=== PATIENT | male | born 1985 ===

== ENCOUNTER 2017-05-11 09:03 | Emergency (ER) | payer SELFPAY ==
[2017-05-11] MEDS ORDERED: Acetaminophen 325 MG TAB ONE (10:14)
[2017-05-11] MEDS ORDERED: Ibuprofen 800 MG TAB ONE (10:14)
== END 2017-05-11 10:27 | disposition home or self-care (01) ==
LOC: ERS 09:03
DX: S06.0X0A Concussion without loss of consciousness, initial encounter (principal); F41.9 Anxiety disorder, unspecified; F32.9 Major depressive disorder, single episode, unspecified; W22.09XA Striking against other stationary object, initial encounter
CPT/HCPCS: 99283